=== PATIENT | female | born 1945 | race African-American/Black ===

== ENCOUNTER 2016-06-23 03:41 | Inpatient (IN) | payer BC, MEDICARE ==
[~2016-06-23] VITALS: Ht 162.6 cm; Wt 77.8 kg
[2016-06-23] VITALS (29 sets, daily range): BP systolic 106–178; RESP 15–24; TEMP 96.8–98.7; Ht 162.6 cm; Wt 77.8 kg
[2016-06-23] MEDS ORDERED: ONDANSETRON 4 MG VIAL IV PUSH PRN (06:40)
[2016-06-23] MEDS ORDERED: ACETAMINOPHEN 325 MG TAB PO PRN (06:40)
[2016-06-23] MEDS ORDERED: SOD CHLOR 0.9% 1000 ML IV SCH (06:40)
[2016-06-23] MEDS ORDERED: PNEUMO VAC 25 MCG/0.5 ML VL IM.VACC ONE (06:50)
[2016-06-23] MEDS ORDERED: LEVEMIR INSULIN SUBQ SCH (09:30)
[2016-06-23] MEDS ORDERED: DEXTROSE 50% SYRINGE 50 ML IV PRN (09:30)
[2016-06-23] MEDS ORDERED: GLUCAGON 1 MG VIAL IM PRN (09:30)
[2016-06-23] MEDS: NIFEdipine XL 60 MG TAB PO SCH (10:03)
[2016-06-23] MEDS: CARVEDILOL 25 MG TAB PO SCH ×2 (10:03→21:29)
[2016-06-23] MEDS: ISOSORBIDE MONO 60 MG TAB PO SCH (10:04)
[2016-06-23] MEDS: CLOPIDOGREL 75 MG TAB PO SCH (10:28)
[2016-06-23] MEDS ORDERED: Furosemide 100 MG/10 ML VIAL IV ONE (10:40)
[2016-06-23] MEDS ORDERED: KAYEXOLATE 15 GM/60 ML BTL PO ONE (11:30)
[2016-06-23] MEDS: DUONEB INH PRN (19:02)
[2016-06-23] MEDS: GABAPENTIN 300 MG CAP PO SCH (21:29)
[2016-06-23] MEDS: DOCUSATE SOD 100 MG CAP PO SCH (21:29)
[2016-06-24] VITALS (26 sets, daily range): BP systolic 100–158; RESP 11–29; TEMP 97.1–98.4
[2016-06-24] MEDS: DUONEB INH PRN (07:39)
[2016-06-24] MEDS: CETIRIZINE 10 MG TAB PO SCH (08:11)
[2016-06-24] MEDS: LEVEMIR INSULIN SUBQ SCH (08:11)
[2016-06-24] MEDS: NIFEdipine XL 60 MG TAB PO SCH (08:11)
[2016-06-24] MEDS: CLOPIDOGREL 75 MG TAB PO SCH (08:11)
[2016-06-24] MEDS: CARVEDILOL 25 MG TAB PO SCH ×2 (08:11→21:14)
[2016-06-24] MEDS: ISOSORBIDE MONO 60 MG TAB PO SCH (08:12)
[2016-06-24] MEDS: DUONEB INH SCH ×3 (08:30→18:51)
[2016-06-24] MEDS: Furosemide 100 MG/10 ML VIAL IV SCH (09:08)
[2016-06-24] MEDS: DOCUSATE SOD 100 MG CAP PO SCH (21:14)
[2016-06-24] MEDS: GABAPENTIN 300 MG CAP PO SCH (21:14)
[2016-06-25] VITALS (10 sets, daily range): BP systolic 130–155; RESP 13–23; TEMP 97.3–98.1
[2016-06-25] MEDS: SODIUM CHLORIDE 0.9% FLUSH BAG 500 ML IV SCH (04:08)
[2016-06-25] MEDS: DUONEB INH SCH ×3 (07:40→19:33)
[2016-06-25] MEDS: LEVEMIR INSULIN SUBQ SCH (08:58)
[2016-06-25] MEDS: CARVEDILOL 25 MG TAB PO SCH ×2 (09:42→21:07)
[2016-06-25] MEDS: Furosemide 100 MG/10 ML VIAL IV SCH (09:42)
[2016-06-25] MEDS: NIFEdipine XL 60 MG TAB PO SCH (09:43)
[2016-06-25] MEDS: CETIRIZINE 10 MG TAB PO SCH (09:43)
[2016-06-25] MEDS: CLOPIDOGREL 75 MG TAB PO SCH (09:43)
[2016-06-25] MEDS: ISOSORBIDE MONO 60 MG TAB PO SCH (09:43)
[2016-06-25] MEDS: DOCUSATE SOD 100 MG CAP PO SCH (21:07)
[2016-06-25] MEDS: GABAPENTIN 300 MG CAP PO SCH (21:08)
[2016-06-26] VITALS (7 sets, daily range): BP systolic 116–160; RESP 16–20; TEMP 97.8–98.8
[2016-06-26] MEDS: SODIUM CHLORIDE 0.9% FLUSH BAG 500 ML IV SCH (02:53)
[2016-06-26] MEDS: DUONEB INH SCH ×3 (06:15→20:08)
[2016-06-26] MEDS: LEVEMIR INSULIN SUBQ SCH (08:30)
[2016-06-26] MEDS: CARVEDILOL 25 MG TAB PO SCH ×2 (08:31→21:37)
[2016-06-26] MEDS: Furosemide 40 MG/4 ML VIAL IV SCH (08:31)
[2016-06-26] MEDS: NIFEdipine XL 60 MG TAB PO SCH (08:32)
[2016-06-26] MEDS: CETIRIZINE 10 MG TAB PO SCH (08:32)
[2016-06-26] MEDS: CLOPIDOGREL 75 MG TAB PO SCH (08:32)
[2016-06-26] MEDS: ISOSORBIDE MONO 60 MG TAB PO SCH (08:33)
[2016-06-26] MEDS: DOCUSATE SOD 100 MG CAP PO SCH (21:37)
[2016-06-26] MEDS: GABAPENTIN 300 MG CAP PO SCH (21:37)
[2016-06-27 03:04] VITALS: BP_SYST 153; RESP 16; TEMP 97.8
[2016-06-27] MEDS: SODIUM CHLORIDE 0.9% FLUSH BAG 500 ML IV SCH ×2 (05:04→23:12)
[2016-06-27] MEDS: DUONEB INH SCH ×3 (07:28→18:48)
[2016-06-27 07:50] VITALS: BP_SYST 151; RESP 18; TEMP 97.6
[2016-06-27] MEDS: Furosemide 40 MG/4 ML VIAL IV SCH (08:36)
[2016-06-27] MEDS: ISOSORBIDE MONO 60 MG TAB PO SCH (08:37)
[2016-06-27] MEDS: CARVEDILOL 25 MG TAB PO SCH ×2 (08:37→19:57)
[2016-06-27] MEDS: NIFEdipine XL 60 MG TAB PO SCH (08:37)
[2016-06-27] MEDS: CETIRIZINE 10 MG TAB PO SCH (08:37)
[2016-06-27] MEDS: LEVEMIR INSULIN SUBQ SCH (08:37)
[2016-06-27] MEDS: CLOPIDOGREL 75 MG TAB PO SCH (08:37)
[2016-06-27] MEDS ORDERED: LEVEMIR INSULIN SUBQ SCH (09:00)
[2016-06-27 11:03] VITALS: BP_SYST 170; RESP 18; TEMP 98.4
[2016-06-27 15:05] VITALS: BP_SYST 142; RESP 18; TEMP 99.3
[2016-06-27 19:38] VITALS: BP_SYST 184; RESP 18; TEMP 99.5
[2016-06-27] MEDS: GABAPENTIN 300 MG CAP PO SCH (19:57)
[2016-06-27] MEDS: DOCUSATE SOD 100 MG CAP PO SCH (19:57)
[2016-06-27 23:17] VITALS: BP_SYST 146; RESP 18; TEMP 98.8
[2016-06-28 03:51] VITALS: BP_SYST 152; RESP 18; TEMP 98.7
[2016-06-28] MEDS: DUONEB INH SCH ×3 (07:33→19:48)
[2016-06-28 08:00] VITALS: BP_SYST 181; RESP 18; TEMP 97.6
[2016-06-28] MEDS: ISOSORBIDE MONO 60 MG TAB PO SCH (08:31)
[2016-06-28] MEDS: CLOPIDOGREL 75 MG TAB PO SCH (08:31)
[2016-06-28] MEDS: Furosemide 40 MG/4 ML VIAL IV SCH (08:31)
[2016-06-28] MEDS: NIFEdipine XL 60 MG TAB PO SCH (08:31)
[2016-06-28] MEDS: CETIRIZINE 10 MG TAB PO SCH (08:31)
[2016-06-28] MEDS: CARVEDILOL 25 MG TAB PO SCH ×2 (08:33→20:56)
[2016-06-28] MEDS: LEVEMIR INSULIN SUBQ SCH (08:35)
[2016-06-28] MEDS ORDERED: MISSING DOSE XX ONE (08:40)
[2016-06-28] MEDS: LEVOFLOXACIN 500 MG TAB PO SCH (11:21)
[2016-06-28 11:46] VITALS: BP_SYST 152; RESP 18; TEMP 98.1
[2016-06-28 15:51] VITALS: BP_SYST 162; RESP 18; TEMP 98.9
[2016-06-28 19:32] VITALS: BP_SYST 159; RESP 18; TEMP 98.5
[2016-06-28] MEDS: GABAPENTIN 300 MG CAP PO SCH (20:56)
[2016-06-28] MEDS: DOCUSATE SOD 100 MG CAP PO SCH (20:56)
[2016-06-28 23:20] VITALS: BP_SYST 153; RESP 16; TEMP 99.1
[2016-06-29] VITALS (7 sets, daily range): BP systolic 80–182; RESP 16–18; TEMP 97.7–98.6
[2016-06-29] MEDS: SODIUM CHLORIDE 0.9% FLUSH BAG 500 ML IV SCH (06:00)
[2016-06-29] MEDS: DUONEB INH SCH ×3 (06:21→19:24)
[2016-06-29] MEDS: Furosemide 40 MG/4 ML VIAL IV SCH (08:48)
[2016-06-29] MEDS: CETIRIZINE 10 MG TAB PO SCH (08:49)
[2016-06-29] MEDS: CLOPIDOGREL 75 MG TAB PO SCH (08:49)
[2016-06-29] MEDS: ISOSORBIDE MONO 60 MG TAB PO SCH (08:49)
[2016-06-29] MEDS: LEVOFLOXACIN 500 MG TAB PO SCH (08:49)
[2016-06-29] MEDS: CARVEDILOL 25 MG TAB PO SCH ×2 (08:49→20:32)
[2016-06-29] MEDS: NIFEdipine XL 60 MG TAB PO SCH (08:49)
[2016-06-29] MEDS: LEVEMIR INSULIN SUBQ SCH (08:50)
[2016-06-29] MEDS: GABAPENTIN 300 MG CAP PO SCH (20:32)
[2016-06-29] MEDS: DOCUSATE SOD 100 MG CAP PO SCH (20:32)
[2016-06-30 03:30] VITALS: BP_SYST 138; RESP 16; TEMP 98.3
[2016-06-30] MEDS: SODIUM CHLORIDE 0.9% FLUSH BAG 500 ML IV SCH (04:31)
[2016-06-30 07:15] VITALS: BP_SYST 110; RESP 16; TEMP 98.4
[2016-06-30] MEDS: DUONEB INH SCH ×3 (07:51→19:29)
[2016-06-30] MEDS: LEVEMIR INSULIN SUBQ SCH (08:49)
[2016-06-30] MEDS: CARVEDILOL 25 MG TAB PO SCH ×2 (08:49→20:45)
[2016-06-30] MEDS: CETIRIZINE 10 MG TAB PO SCH (08:49)
[2016-06-30] MEDS: CLOPIDOGREL 75 MG TAB PO SCH (08:49)
[2016-06-30] MEDS: LEVOFLOXACIN 500 MG TAB PO SCH (08:50)
[2016-06-30] MEDS: NIFEdipine XL 60 MG TAB PO SCH (08:51)
[2016-06-30] MEDS: ISOSORBIDE MONO 60 MG TAB PO SCH (08:52)
[2016-06-30] MEDS ORDERED: MISSING DOSE XX ONE (08:55)
[2016-06-30] MEDS: Furosemide 40 MG/4 ML VIAL IV SCH (09:41)
[2016-06-30 11:57] VITALS: BP_SYST 128; RESP 16; TEMP 98.4
[2016-06-30 15:00] VITALS: BP_SYST 165; RESP 18; TEMP 98.3
[2016-06-30 19:15] VITALS: BP_SYST 170; RESP 18; TEMP 98.3
[2016-06-30] MEDS: DOCUSATE SOD 100 MG CAP PO SCH (20:45)
[2016-06-30] MEDS: GABAPENTIN 300 MG CAP PO SCH (20:45)
[2016-06-30 23:20] VITALS: BP_SYST 152; RESP 16; TEMP 98.2
[2016-07-01 04:01] VITALS: BP_SYST 145; RESP 16; TEMP 97.9
[2016-07-01] MEDS: SODIUM CHLORIDE 0.9% FLUSH BAG 500 ML IV SCH (05:13)
[2016-07-01] MEDS: DUONEB INH SCH ×3 (07:22→19:50)
[2016-07-01 07:46] VITALS: BP_SYST 154; RESP 18; TEMP 98
[2016-07-01] MEDS: CETIRIZINE 10 MG TAB PO SCH (08:35)
[2016-07-01] MEDS: CARVEDILOL 25 MG TAB PO SCH ×2 (08:35→20:55)
[2016-07-01] MEDS: ISOSORBIDE MONO 60 MG TAB PO SCH (08:35)
[2016-07-01] MEDS: NIFEdipine XL 60 MG TAB PO SCH (08:35)
[2016-07-01] MEDS: LEVOFLOXACIN 500 MG TAB PO SCH (08:35)
[2016-07-01] MEDS: CLOPIDOGREL 75 MG TAB PO SCH (08:35)
[2016-07-01] MEDS: Furosemide 40 MG/4 ML VIAL IV SCH (08:36)
[2016-07-01] MEDS: VENOFER 100 MG/5 ML VL IV SCH (08:44)
[2016-07-01] MEDS: LEVEMIR INSULIN SUBQ SCH (09:40)
[2016-07-01 11:54] VITALS: BP_SYST 130; RESP 18; TEMP 97.9
[2016-07-01 15:12] VITALS: BP_SYST 124; RESP 20; TEMP 97.7
[2016-07-01 19:23] VITALS: BP_SYST 154; RESP 20; TEMP 99.3
[2016-07-01] MEDS: DOCUSATE SOD 100 MG CAP PO SCH (20:54)
[2016-07-01] MEDS: GABAPENTIN 300 MG CAP PO SCH (20:55)
[2016-07-01 23:24] VITALS: BP_SYST 140; RESP 20; TEMP 99.2
[2016-07-02 03:39] VITALS: BP_SYST 134; RESP 20; TEMP 98.9
[2016-07-02] MEDS: SODIUM CHLORIDE 0.9% FLUSH BAG 500 ML IV SCH (04:53)
[2016-07-02] MEDS: DUONEB INH SCH ×3 (07:23→19:12)
[2016-07-02 07:29] VITALS: BP_SYST 149; RESP 18; TEMP 97.7
[2016-07-02] MEDS: LEVEMIR INSULIN SUBQ SCH (07:39)
[2016-07-02] MEDS ORDERED: EPOETIN 40,000 UNIT VIAL SUBQ ONE (08:20)
[2016-07-02] MEDS ORDERED: LEXISCAN 0.4 MG/5 ML SYRINGE IV ONE (09:59)
[2016-07-02 11:52] VITALS: BP_SYST 152; RESP 18; TEMP 97.8
[2016-07-02] MEDS: CLOPIDOGREL 75 MG TAB PO SCH (11:55)
[2016-07-02] MEDS: CETIRIZINE 10 MG TAB PO SCH (11:55)
[2016-07-02] MEDS: VENOFER 100 MG/5 ML VL IV SCH (11:55)
[2016-07-02] MEDS: ISOSORBIDE MONO 60 MG TAB PO SCH (11:56)
[2016-07-02] MEDS: LEVOFLOXACIN 500 MG TAB PO SCH (11:56)
[2016-07-02] MEDS: CARVEDILOL 25 MG TAB PO SCH ×2 (11:56→20:17)
[2016-07-02] MEDS: NIFEdipine XL 60 MG TAB PO SCH (11:56)
[2016-07-02] MEDS: Furosemide 40 MG/4 ML VIAL IV SCH (11:58)
[2016-07-02 15:19] VITALS: BP_SYST 122; RESP 18; TEMP 97.4
[2016-07-02 19:00] VITALS: BP_SYST 134; RESP 18; TEMP 98.5
[2016-07-02] MEDS: DOCUSATE SOD 100 MG CAP PO SCH (20:16)
[2016-07-02] MEDS: GABAPENTIN 300 MG CAP PO SCH (20:16)
[2016-07-02 23:00] VITALS: BP_SYST 141; RESP 18; TEMP 98.2
[2016-07-03] MEDS ORDERED: NITROGLYCERIN SL 0.4 MG TAB SL PRN (01:10)
[2016-07-03 03:00] VITALS: BP_SYST 154; RESP 18; TEMP 98
[2016-07-03] MEDS: SODIUM CHLORIDE 0.9% FLUSH BAG 500 ML IV SCH (05:46)
[2016-07-03 07:45] VITALS: BP_SYST 146; RESP 16; TEMP 98.1
[2016-07-03] MEDS: DUONEB INH SCH ×3 (07:57→19:42)
[2016-07-03] MEDS: CARVEDILOL 25 MG TAB PO SCH ×2 (08:05→20:14)
[2016-07-03] MEDS: NIFEdipine XL 60 MG TAB PO SCH (08:05)
[2016-07-03] MEDS: CETIRIZINE 10 MG TAB PO SCH (08:05)
[2016-07-03] MEDS: ISOSORBIDE MONO 60 MG TAB PO SCH (08:05)
[2016-07-03] MEDS: LEVOFLOXACIN 500 MG TAB PO SCH (08:05)
[2016-07-03] MEDS: CLOPIDOGREL 75 MG TAB PO SCH (08:05)
[2016-07-03] MEDS: VENOFER 100 MG/5 ML VL IV SCH (08:06)
[2016-07-03] MEDS: Furosemide 40 MG/4 ML VIAL IV SCH (08:06)
[2016-07-03] MEDS: LEVEMIR INSULIN SUBQ SCH (08:07)
[2016-07-03 11:24] VITALS: BP_SYST 132; RESP 18; TEMP 98.5
[2016-07-03] MEDS ORDERED: ISOSORBIDE MONO 60 MG TAB PO ONE (13:00)
[2016-07-03] MEDS ORDERED: MISSING DOSE XX ONE (13:55)
[2016-07-03 15:37] VITALS: BP_SYST 132; RESP 18; TEMP 98.9
[2016-07-03 19:13] VITALS: BP_SYST 127; RESP 18; TEMP 98.8
[2016-07-03] MEDS: GABAPENTIN 300 MG CAP PO SCH (20:14)
[2016-07-03] MEDS: DOCUSATE SOD 100 MG CAP PO SCH (20:14)
[2016-07-03 23:00] VITALS: BP_SYST 148; RESP 18; TEMP 98.3
[2016-07-04 03:00] VITALS: BP_SYST 132; RESP 16; TEMP 97.9
[2016-07-04] MEDS: SODIUM CHLORIDE 0.9% FLUSH BAG 500 ML IV SCH (03:45)
[2016-07-04 07:22] VITALS: BP_SYST 147; RESP 18; TEMP 98.3
[2016-07-04] MEDS: DUONEB INH SCH ×2 (07:50→11:50)
[2016-07-04] MEDS ORDERED: ISOSORBIDE MONO 60 MG TAB PO SCH (09:00)
[2016-07-04] MEDS: NIFEdipine XL 60 MG TAB PO SCH (09:01)
[2016-07-04] MEDS: Furosemide 40 MG/4 ML VIAL IV SCH (09:01)
[2016-07-04] MEDS: CETIRIZINE 10 MG TAB PO SCH (09:02)
[2016-07-04] MEDS: LEVOFLOXACIN 500 MG TAB PO SCH (09:02)
[2016-07-04] MEDS: CARVEDILOL 25 MG TAB PO SCH (09:02)
[2016-07-04] MEDS: CLOPIDOGREL 75 MG TAB PO SCH (09:03)
[2016-07-04] MEDS: LEVEMIR INSULIN SUBQ SCH (10:00)
[2016-07-04 11:44] VITALS: BP_SYST 119; RESP 18; TEMP 98.1
[2016-07-04 14:40] VITALS: BP_SYST 119; RESP 18; TEMP 98.1
== END 2016-07-04 15:48 | disposition home health service (06) | DRG 682 ==
LOC: ENRESERVDT → ENRESERVTM → CCU 06:26 → ENPENDDIS 06:26 → 4THW 06-25 03:42
PROVIDERS: ADMIT Internal Medicine Nephrology; ATTEND Internal Medicine Nephrology
DX: N17.9 Acute kidney failure, unspecified (principal); I50.23 Acute on chronic systolic (congestive) heart failure; C90.00 Multiple myeloma not having achieved remission; E10.22 Type 1 diabetes mellitus with diabetic chronic kidney disease; I13.0 Hypertensive heart and chronic kidney disease with heart failure and stage 1 through stage 4 chronic kidney disease, or unspecified chronic kidney disease; J44.1 Chronic obstructive pulmonary disease with (acute) exacerbation; N18.4 Chronic kidney disease, stage 4 (severe); Z79.899 Other long term (current) drug therapy; R09.02 Hypoxemia; M19.90 Unspecified osteoarthritis, unspecified site; Z79.02 Long term (current) use of antithrombotics/antiplatelets; Z79.4 Long term (current) use of insulin; J30.9 Allergic rhinitis, unspecified; I25.119 Atherosclerotic heart disease of native coronary artery with unspecified angina pectoris; I25.5 Ischemic cardiomyopathy; Z86.73 Personal history of transient ischemic attack (TIA), and cerebral infarction without residual deficits; Z95.5 Presence of coronary angioplasty implant and graft; E10.65 Type 1 diabetes mellitus with hyperglycemia; R53.1 Weakness; J06.9 Acute upper respiratory infection, unspecified; I25.2 Old myocardial infarction; K21.9 Gastro-esophageal reflux disease without esophagitis; F41.9 Anxiety disorder, unspecified; E10.42 Type 1 diabetes mellitus with diabetic polyneuropathy
CPT/HCPCS: 71010; 78452; 80048; 80053; 80069; 81001; 82436; 82553; 82947; 84300; 84484; 85025; 93005; 93017; 93306; 94640; 94799